=== PATIENT | male | born 1950 | race Caucasian/White ===

== ENCOUNTER 2017-01-07 16:48 | Inpatient (IN) | payer OTHER ==
[~2017-01-07 16:48] MED LIST: ASPIRIN EC81 MG PO; AUGMENTIN 500-1 EAC2 PO; BACTRIM DS TAB1 EAC2 PO; COLACE100 M1 PO; COREG6.25 M1 PO; COUMADIN10 M1 PO; COUMADIN5 M2 PO; COUMADIN7.5 M1 PO; COZAAR50 M1 PO; FISH OIL 11000 MG/CA PO; FLOMAX0.4 M1 PO; HUMALOG100 UNITS/ SC; ISOSORBIDE MONO30 M4 PO; LANTUS100 UNITS/ SC; LIPITOR40 M1 PO; METOPROLOL SUCC25 M1 PO; MULTIVITAMINS1 EAC6 PO; NORCO 5-325 TA1 EACH PO; OMEGA 3 1,0001 EAC1 PO; OXYGEN; PLAVIX75 M1 PO; PRAVASTATIN SOD20 M1 PO; PROTONIX40 M2 PO; SENNA PLUS TAB1 EAC1 PO; VENTOLIN HFA18 G2 INH; VICTOZA 2-0.6 MG/0.1 SC; VITAMIN D350000 UNI1 PO; WARFARIN SODIUM10 M1 PO
[2017-01-07 17:23] LABS: BASO % 0.8 % (0-2); BASO ABSOLUTE COUNT 0.1 tho/cmm (0.0-0.2); EOS % 2.5 % (0-7); EOSINOPHIL ABSOLUTE COUNT 0.2 tho/cmm (0.0-0.7); HCT-HEMATOCRIT 39.3 % (36.0-53.5); IMMATURE GRANULOCYTES ABSOLUTE 0.01 tho/cmm (0-0.03); IMMATURE GRANULOCYTES PERCENT 0.2 % (0-0.3); LYMPH % 16.9 % (20-45); LYMPH ABSOLUTE COUNT 1.1 tho/cmm (0.8-4.5); MCH (MEAN CORPUSCULAR HGB) 29.2 pg (28.0-32.0); MCHC MEAN CORPUSCULAR HGB CONC 33.1 % (32.0-36.0); MCV (MEAN CELL VOLUME) 88.3 fl (82.0-96.0); MONOCYTE ABSOLUTE COUNT 0.4 tho/cmm (0.0-1.2); NEUTROPHIL ABSOLUTE COUNT 4.6 tho/cmm (1.6-8.0); NEUTROPHIL-AUTOMATED 4.6 tho/cmm (1.6-8.0); NEUTROPHILS % 72.6 % (40-80); PLATELET COUNT 206 tho/cmm (150-450); RED BLOOD COUNT 4.45 mil/cmm (4.40-5.70); RED CELL DISTRIBUTION WIDTH 15.4 % (12.4-16.4); WHITE BLOOD COUNT 6.3 tho/cmm (4.0-10.0)
[2017-01-07] MEDS ORDERED: METOPROLOL TART25 M1 PO (17:26)
[2017-01-07] MEDS ORDERED: KEFLEX (17:26)
[2017-01-07 17:37] LABS: ANION GAP 13 mmol/L (0-20); BLOOD UREA NITROGEN 44 mg/dl (6-24); CALCIUM 8.3 mg/dl (8.5-10.5); CARBON DIOXIDE-VENOUS 26 mmol/L (22-32); CHLORIDE 109 mmol/l (96-110); CREATININE 3.99 mg/dl (0.60-1.30); GLUCOSE 163 mg/dL (70-110); POTASSIUM 4.1 mmol/L (3.7-5.1); SODIUM 144 mmol/L (135-145); eGFR VALUE FOR BLACK 17 mL/Min
[2017-01-07 18:10] LABS: PROTHROMBIN TIME 11.4 SECONDS (9.0-13.6)
[2017-01-07 22:46] LABS: ALB/GLOB RATIO 0.6 (0.8-2.0); ALBUMIN 2.4 g/dl (3.5-5.0); ALKALINE PHOSPHATASE 212 U/L (33-138); ALT/SGPT 29 U/L (12-78); ANION GAP 18 mmol/L (0-20); AST/SGOT 28 U/L (10-40); BILIRUBIN,TOTAL 0.5 mg/dl (0.0-1.5); BLOOD UREA NITROGEN 44 mg/dl (6-24); CALCIUM 8.2 mg/dl (8.5-10.5); CARBON DIOXIDE-VENOUS 22 mmol/L (22-32); CHLORIDE 108 mmol/l (96-110); CREATININE 4.11 mg/dl (0.60-1.30); GLUCOSE 157 mg/dL (70-110); MAGNESIUM 2.3 mg/dl (1.8-2.6); POTASSIUM 4.1 mmol/L (3.7-5.1); SODIUM 144 mmol/L (135-145); eGFR VALUE FOR BLACK 17 mL/Min
--- NOTE | 2017-01-08 02:31 | NUR ---
NOTIFIED LEGAL ASSOCIATE OF CONTINUED HIGH SBP/DBP. RECEIVED ORDER TO HOLD ANTICOAGULANTS IN CASE OF POSSIBLE PROCEDURE TODAY. WILL CONTINUE TO MONITOR AND NOTIFY PROVIDER OF CHANGES.
[2017-01-08 05:09] LABS: PROTHROMBIN TIME 11.5 SECONDS (9.0-13.6)
[2017-01-08 05:40] LABS: ANION GAP 13 mmol/L (0-20); BLOOD UREA NITROGEN 45 mg/dl (6-24); CALCIUM 7.8 mg/dl (8.5-10.5); CARBON DIOXIDE-VENOUS 27 mmol/L (22-32); CHLORIDE 109 mmol/l (96-110); CREATININE 4.13 mg/dl (0.60-1.30); GLUCOSE 139 mg/dL (70-110); POTASSIUM 3.7 mmol/L (3.7-5.1); SODIUM 145 mmol/L (135-145); eGFR VALUE FOR BLACK 17 mL/Min
[2017-01-08 14:47] LABS: BASO % 0.8 % (0-2); EOS % 2.1 % (0-7); EOSINOPHIL ABSOLUTE COUNT 0.1 tho/cmm (0.0-0.7); HCT-HEMATOCRIT 35.5 % (36.0-53.5); HGB-HEMOGLOBIN 11.5 gm/dl (13.5-17.0); IMMATURE GRANULOCYTES ABSOLUTE 0.01 tho/cmm (0-0.03); IMMATURE GRANULOCYTES PERCENT 0.2 % (0-0.3); INR 1.1 INR (0.9-1.1); LYMPH % 16.3 % (20-45); LYMPH ABSOLUTE COUNT 0.8 tho/cmm (0.8-4.5); MCH (MEAN CORPUSCULAR HGB) 28.8 pg (28.0-32.0); MCHC MEAN CORPUSCULAR HGB CONC 32.4 % (32.0-36.0); MCV (MEAN CELL VOLUME) 88.8 fl (82.0-96.0); MEAN PLATELET VOLUME 11.8 cmc (9.4-12.4); MONO % 7.4 % (0-12); MONOCYTE ABSOLUTE COUNT 0.4 tho/cmm (0.0-1.2); NEUTROPHIL ABSOLUTE COUNT 3.8 tho/cmm (1.6-8.0); NEUTROPHIL-AUTOMATED 3.8 tho/cmm (1.6-8.0); NEUTROPHILS % 73.2 % (40-80); PLATELET COUNT 176 tho/cmm (150-450); PROTHROMBIN TIME 12.6 SECONDS (9.0-13.6); RED CELL DISTRIBUTION WIDTH 15.4 % (12.4-16.4); WHITE BLOOD COUNT 5.2 tho/cmm (4.0-10.0)
[2017-01-08 22:29] LABS: MAGNESIUM 2.2 mg/dl (1.8-2.6); POTASSIUM 3.5 mmol/L (3.7-5.1)
[2017-01-09 00:23] LABS: URINE LEUKOCYTE ESTERASE NEGATIVE (NEG); URINE PROTEIN LARGE (NEG); URINE SPECIFIC GRAVITY 1.015 (1.003-1.030)
[2017-01-09 00:24] LABS: URINE APPEARANCE HAZY; URINE BILIRUBIN NEGATIVE (NEG); URINE BLOOD MODERATE (NEG); URINE COLOR PALE YELLOW; URINE GLUCOSE (UA) MODERATE (NEG); URINE KETONE NEGATIVE (NEG); URINE NITRITE NEGATIVE (NEG)
[2017-01-09 01:01] LABS: URINE WBC 0-1 /[HPF] (0-5)
[2017-01-09 01:02] LABS: URINE EPITHELIAL CELLS 0-5 /[HPF] (0-10)
[2017-01-09 01:27] LABS: URINE PRT/CR RATIO 8.85 Ratio (0.0-0.20); URINE TOTAL PROTEIN-RANDOM 230.3 mg/dl (<11.8)
[2017-01-09 02:36] LABS: ANION GAP 14 mmol/L (0-20); BLOOD UREA NITROGEN 46 mg/dl (6-24); CALCIUM 7.7 mg/dl (8.5-10.5); CARBON DIOXIDE-VENOUS 27 mmol/L (22-32); CHLORIDE 107 mmol/l (96-110); CREATININE 3.87 mg/dl (0.60-1.30); GLUCOSE 147 mg/dL (70-110); MAGNESIUM 2.2 mg/dl (1.8-2.6); PHOSPHOROUS 4.7 mg/dl (2.5-4.9); POTASSIUM 3.6 mmol/L (3.7-5.1); SODIUM 144 mmol/L (135-145); eGFR VALUE FOR BLACK 18 mL/Min
[2017-01-09 14:49] LABS: MAGNESIUM 2.3 mg/dl (1.8-2.6); POTASSIUM 3.5 mmol/L (3.7-5.1)
[2017-01-09 22:19] LABS: MAGNESIUM 2.1 mg/dl (1.8-2.6); POTASSIUM 3.4 mmol/L (3.7-5.1)
[2017-01-10 05:48] LABS: ANION GAP 12 mmol/L (0-20); BLOOD UREA NITROGEN 48 mg/dl (6-24); CALCIUM 7.7 mg/dl (8.5-10.5); CARBON DIOXIDE-VENOUS 31 mmol/L (22-32); CHLORIDE 106 mmol/l (96-110); CREATININE 3.99 mg/dl (0.60-1.30); GLUCOSE 77 mg/dL (70-110); POTASSIUM 3.5 mmol/L (3.7-5.1); SODIUM 145 mmol/L (135-145); eGFR VALUE FOR BLACK 17 mL/Min
[2017-01-10 22:46] LABS: MAGNESIUM 1.9 mg/dl (1.8-2.6); POTASSIUM 3.8 mmol/L (3.7-5.1)
[2017-01-11 05:30] LABS: ALB/GLOB RATIO 0.6 (0.8-2.0); ALKALINE PHOSPHATASE 191 U/L (33-138); ALT/SGPT 24 U/L (12-78); ANION GAP 11 mmol/L (0-20); AST/SGOT 19 U/L (10-40); BILIRUBIN,TOTAL 0.4 mg/dl (0.0-1.5); BLOOD UREA NITROGEN 47 mg/dl (6-24); CALCIUM 7.8 mg/dl (8.5-10.5); CARBON DIOXIDE-VENOUS 30 mmol/L (22-32); CHLORIDE 105 mmol/l (96-110); CREATININE 3.84 mg/dl (0.60-1.30); MAGNESIUM 1.9 mg/dl (1.8-2.6); POTASSIUM 3.3 mmol/L (3.7-5.1); SODIUM 143 mmol/L (135-145); eGFR VALUE FOR BLACK 18 mL/Min
[2017-01-11 05:43] LABS: GLUCOSE 60 mg/dL (70-110)
--- NOTE | 2017-01-11 08:14 | NUR ---
0445-TEMP 34.2. WARM BLANKETS APPLIED TO PT. CONTACTED ILA DESAI WITH [facility]. ORDERS TO APPLY BAEAR HUGGER IF DOESN'T IMPROVE IN 20 MIN. TEMP STILL 34.4 AFTER 20 MIN. MORA HUGGER PLACED ON PT AT 0545. TEMP 36.4 AT 0700, MORA HUGGER REMOVED FROM PT.
[2017-01-11 14:17] LABS: POTASSIUM 3.6 mmol/L (3.7-5.1)
[2017-01-11 21:34] LABS: CREATININE 3.84 mg/dl (0.67-1.17)
[2017-01-11 22:26] LABS: MAGNESIUM 1.9 mg/dl (1.8-2.6); POTASSIUM 3.9 mmol/L (3.7-5.1)
[2017-01-12 05:06] LABS: INR 1.1 INR (0.9-1.1); PROTHROMBIN TIME 12.2 SECONDS (9.0-13.6)
[2017-01-12 05:21] LABS: ANION GAP 12 mmol/L (0-20); BLOOD UREA NITROGEN 53 mg/dl (6-24); CALCIUM 7.5 mg/dl (8.5-10.5); CARBON DIOXIDE-VENOUS 32 mmol/L (22-32); CHLORIDE 103 mmol/l (96-110); CREATININE 3.84 mg/dl (0.60-1.30); MAGNESIUM 1.9 mg/dl (1.8-2.6); PHOSPHOROUS 4.6 mg/dl (2.5-4.9); POTASSIUM 3.8 mmol/L (3.7-5.1); SODIUM 143 mmol/L (135-145); eGFR VALUE FOR BLACK 18 mL/Min
[2017-01-12 05:23] LABS: GLUCOSE 141 mg/dL (70-110)
[2017-01-13 06:03] LABS: INR 1.1 INR (0.9-1.1); PROTHROMBIN TIME 13.2 SECONDS (9.0-13.6)
[2017-01-13 06:10] LABS: ANION GAP 12 mmol/L (0-20); BLOOD UREA NITROGEN 58 mg/dl (6-24); CALCIUM 7.7 mg/dl (8.5-10.5); CARBON DIOXIDE-VENOUS 33 mmol/L (22-32); CHLORIDE 104 mmol/l (96-110); CREATININE 3.97 mg/dl (0.60-1.30); GLUCOSE 87 mg/dL (70-110); POTASSIUM 3.6 mmol/L (3.7-5.1); SODIUM 145 mmol/L (135-145); eGFR VALUE FOR BLACK 17 mL/Min
[2017-01-14 05:02] LABS: PROTHROMBIN TIME 20.8 SECONDS (9.0-13.6)
[2017-01-14 05:03] LABS: INR 1.8 INR (0.9-1.1)
[2017-01-14 10:03] LABS: ANION GAP 13 mmol/L (0-20); BLOOD UREA NITROGEN 59 mg/dl (6-24); CALCIUM 7.5 mg/dl (8.5-10.5); CARBON DIOXIDE-VENOUS 34 mmol/L (22-32); CHLORIDE 99 mmol/l (96-110); POTASSIUM 3.2 mmol/L (3.7-5.1); SODIUM 143 mmol/L (135-145); eGFR VALUE FOR BLACK 17 mL/Min
[2017-01-14 10:04] LABS: GLUCOSE 152 mg/dL (70-110)
[2017-01-14] MEDS ORDERED: COREG25 M1 PO (12:23)
[2017-01-14] MEDS ORDERED: DEMADEX20 M1 PO (12:24)
[2017-01-14] MEDS ORDERED: POTASSIUM CHLO20 ME3 PO (12:28)
[2017-01-14] MEDS ORDERED: HYDRALAZINE HCL10 M1 PO (12:59)
[2017-03-02] MEDS ORDERED: BETADINE1 EACH TOP (21:51)
[2017-03-02] MEDS ORDERED: BACITRACIN28.4 G2 TOP (21:51)
[2017-03-07] MEDS ORDERED: NORCO 5-325 TA1 EACH PO (09:54)
[2017-03-07] MEDS ORDERED: METOLAZONE2.5 M1 PO (09:56)
== END 2017-01-14 13:45 | DRG 291 ==
LOC: EDMED 16:48 → EMR2 21:38 → PCUB 21:50
PROVIDERS: Emergency Medicine; Internal Medicine Cardiovascular Disease; Internal Medicine Nephrology; Nurse Practitioner Family; ADMIT Internal Medicine Cardiovascular Disease
PROC: B246ZZZ Ultrasonography of Right and Left Heart (ICD-10-PCS; principal; 2017-01-08)
PROC: 3E0F7GC Introduction of Other Therapeutic Substance into Respiratory Tract, Via Natural or Artificial Opening (ICD-10-PCS; principal; 2017-01-08)
DX: I13.0 Hypertensive heart and chronic kidney disease with heart failure and stage 1 through stage 4 chronic kidney disease, or unspecified chronic kidney disease (principal); I50.21 Acute systolic (congestive) heart failure; N17.9 Acute kidney failure, unspecified; E87.0 Hyperosmolality and hypernatremia; E11.21 Type 2 diabetes mellitus with diabetic nephropathy; N18.5 Chronic kidney disease, stage 5; E87.70 Fluid overload, unspecified; G47.33 Obstructive sleep apnea (adult) (pediatric); I25.10 Atherosclerotic heart disease of native coronary artery without angina pectoris; I48.0 Paroxysmal atrial fibrillation; N40.0 Benign prostatic hyperplasia without lower urinary tract symptoms; Z79.01 Long term (current) use of anticoagulants; Z86.718 Personal history of other venous thrombosis and embolism; Z95.1 Presence of aortocoronary bypass graft; Z87.891 Personal history of nicotine dependence; E11.22 Type 2 diabetes mellitus with diabetic chronic kidney disease; D63.1 Anemia in chronic kidney disease; R39.2 Extrarenal uremia
CPT/HCPCS: C8929; G8978-GP-CH; G8979-GP-CH; G8980-GP-CH; G8987-GO-CH; G8988-GO-CH; G8989-GO-CH; J1644; J1815; J1940; J3480; J7050